=== PATIENT | female | born 1945 | race Caucasian/White ===

== ENCOUNTER → 2016-10-20 | Outpatient (CLI) | payer MEDICARE, OTHER ==
[~2016-10-20] VITALS: Ht 154.9 cm; Wt 90.5 kg
[~2016-10-20] MED LIST: ESTR0.5T5 PO; LEVO75TA PO; LOSA50TA6 PO; MEDR2.5T PO; METO50TA16 PO; Z PACK PO
--- NOTE | 2016-10-20 10:11 | HISTORY & PHYSICAL EXAMINATION ---
DATE OF ADMISSION: 11/19/2016 PROCEDURE: Left knee replacement. HISTORY OF PRESENT ILLNESS: The patient is a jane 70-year-old female who presents for preop evaluation prior to left knee replacement. She states she has pain in this knee for several years now which has worsened, it has now gotten to the point it is affecting her daily activities including walking, standing, going up and down steps. She has had previous injections in the past including cortisone without relief. She had her right knee replaced several years ago which is doing well. At this point in time, has failed conservative measures and would like to proceed with a left knee replacement. PAST MEDICAL HISTORY: 1. High cholesterol. 2. Hypothyroidism. 3. Hypertension. ALLERGIES: PENICILLIN CAUSES SWELLING. CURRENT MEDICATIONS: 1. Cozaar 50 mg daily. 2. Synthroid 75 mcg daily. 3. Lopressor 50 mg b.i.d. 4. Atrac-Tain apply 1 g b.i.d. topical use. PAST SURGICAL HISTORY: Right knee replacement. FAMILY HISTORY: Noncontributory. SOCIAL HISTORY: The patient is . Denies a history of smoking or tobacco use. No alcohol consumption. REVIEW OF SYSTEMS: Otherwise negative. Please see HPI for pertinent positives. PHYSICAL EXAMINATION: GENERAL: Jane 70-year-old female in no acute distress, alert and oriented x3. VITAL SIGNS: She is 5 feet 2 inches, weighs 141 pounds. HEENT: Normocephalic, atraumatic. CARDIAC: Regular rate and rhythm. No murmurs or gallops appreciated. Resting pulse 80 beats per minute. LUNGS: Clear to auscultation without rales or wheeze. ABDOMEN: Soft, nontender. Bowel sounds present. EXTREMITIES: Left lower extremity is neurovascularly intact. Calves are soft and nontender. DP pulse +2. Demonstrates good quad tone. Straight leg raise without lag. No erythema or warmth. Has mild effusion. Overall, has varus alignment, positive crepitation with motion, range of motion is 0/5/115. IMAGING: Reviewed of the left knee shows findings consistent with degenerative joint disease including joint space narrowing, subchondral sclerosis, and osteophyte formation noted. She has varus alignment. IMPRESSION: 1. Left knee degenerative joint disease. 2. Past medical history as outlined above. PLAN: Further care discussed with patient. At this point in time, has failed conservative and would like to proceed with left knee replacement. We will plan on discharge home with outpatient physical therapy. We will place on aspirin 81 mg p.o. b.i.d. for a month postop.
[2016-10-20 10:16] VITALS: Ht 154.9 cm; Wt 90.5 kg
--- NOTE | 2016-10-20 10:56 | PAT Medication Instructions ---
Service Date October 20, 2016. Current Home Medication List Estradiol (Estrace), 1 TAB PO QAM Levothyroxine Sodium (Synthroid), 75 MCG PO QAM Losartan Potassium (Cozaar), 50 MG PO QAM Medroxyprogesterone (Provera), 2.5 MG PO QAM Metoprolol Tartrate (Lopressor) (Lopressor), 50 MG PO BID [Z Pack], 1 TAB PO QAM Medication Instructions For Your Scheduled Surgery [Z Pack], 1 TAB PO QAM (to be completed to prior to surgery) - Check with surgeon for instructions: Estradiol (Estrace), 1 TAB PO QAM Medroxyprogesterone (Provera), 2.5 MG PO QAM - Hold the following medications the morning of surgery: Losartan Potassium (Cozaar), 50 MG PO QAM - Take the following medications the morning of surgery with a sip of water: Metoprolol Tartrate (Lopressor) (Lopressor), 50 MG PO BID Levothyroxine Sodium (Synthroid), 75 MCG PO QAM - Take the following medications as scheduled the night before surgery: Metoprolol Tartrate (Lopressor) (Lopressor), 50 MG PO BID If you have any questions please call us at [phone] (Sarah Montana PA-C ) or [phone] or [phone]
[2016-10-20 11:39] LABS: PROTHROMBIN TIME (PATIENT) 10.2 SECONDS (9.0-12.0)
[2016-10-20 12:10] LABS: BASO % 0.2 %; BASO ABS # 0.01 K/uL (0-0.2); COMPLETE YES; HEMATOCRIT 45.3 % (37-47); IG% 0.3 %; LYMPH % 24.4 %; LYMPH ABS # 1.46 K/uL (1.2-3.4); MEAN CELL VOLUME 81.9 fL (80-100); MEAN CORPUSCULAR HEMOGLOBIN 25.9 pg (25-34); MEAN CORPUSCULAR HGB CONC 31.6 g/dl (32-36); MONO % 7.2 %; NEUT % 65.9 %; PLATELET COUNT 82 K/uL (130-400); RED BLOOD COUNT 5.53 M/uL (4.2-5.4); WHITE BLOOD COUNT 5.98 K/uL (4.8-10.8)
[2016-10-20 13:50] LABS: BUN/CREATININE RATIO 16.8 (10-20); CALCIUM 9.9 mg/dl (8.5-10.1); CREATININE 0.87 mg/dl (0.60-1.20); POTASSIUM 4.5 mmol/L (3.5-5.1)
== END | disposition home or self-care (01) ==
LOC: C.LAB 08:00 → EDSTATUS 11-19 14:39
PROVIDERS: ATTEND Orthopaedic Surgery
DX: Z01.818 Encounter for other preprocedural examination (principal)

== ENCOUNTER 2021-09-18 06:35 | Inpatient (IN) ==
--- NOTE | 2021-08-16 12:01 | PAT Medication Instructions ---
Medication Instructions Date of Service August 16, 2021 Home Medications levothyroxine 75 mcg tablet (Synthroid) 75 mcg PO QAM losartan 50 mg tablet (Cozaar) 50 mg PO QAM metoprolol tartrate 50 mg tablet (Lopressor) 50 mg PO BID DO NOT take the morning of surgery losartan 50 mg tablet (Cozaar) 50 mg PO QAM Take morning of surgery With a small sip of water, OTHERWISE NOTHING TO EAT OR DRINK AFTER MIDNIGHT: levothyroxine 75 mcg tablet (Synthroid) 75 mcg PO QAM metoprolol tartrate 50 mg tablet (Lopressor) 50 mg PO BID Take evening before surgery metoprolol tartrate 50 mg tablet (Lopressor) 50 mg PO BID Other Notes If you have any questions please call us at [phone] or [phone] or [phone] or [phone]
--- NOTE | 2021-08-19 09:40 | Anesthesiology Consultation ---
Date of Service August 19, 2021 Assessment & Plan (1) Encounter for pre-operative examination: - thrombocytopenia, Plt 96k. No known prior history. Case discussed with Dr. Randall who advised PCP repeat CBC with diff at upcoming pre-op evaluation with their clinic and if still below 100, to obtain CBC with diff am DOS. Note completed to be faxed to PCP office. Mirela at surgeon's office made aware. - medical pre-op evaluation, 09/12/21. - latex allergy, contact. - Outpatient joint pathway: Patient marked as outpatient joint on booking sheet, states she is not aware of this plan. She was advised to further discuss with surgeon's office. Ramon at surgeon's office made aware. - COVID screening: Per assessment on 08/19/2021: Travel screen negative, no known COVID-19 positive contacts or current COVID-19 related symptoms in past 2 weeks. Patient vaccinated. Surgeon arranging preop COVID testing, scheduled 09/16/2021. Awaiting results. Chart Review Chart Review: Pending: Refer to Additional Notes / Consult section and Patient seen in Pre Admission Testing Teaching & Discussion Pre-Anesthesia Teaching/Discussion Notes: Instructed NPO after midnight before surgery, except medications with 15 cc of water. Medication instructions provided according to the PAT guidelines. History Surgery Operation Date: 09/18/21 07:00 Proposed Procedures p OP: Left Total Knee Arthroplasty - Rico Stewart DO Height/Weight Height: 5 ft 2 in Weight: 97.3 kg Allergies Allergy/AdvReac Type Severity Reaction Status Date / Time Penicillins Allergy Severe BREATHING Verified 08/12/21 10:32 ISSUES latex Allergy Mild RASH Verified 08/12/21 10:32 oxycodone [From OxyContin] AdvReac Mild NAUSEA/VOMI Verified 08/12/21 10:32 TTING Medications Home Medications Medication Instructions Recorded Confirmed Last Taken levothyroxine 75 mcg tablet 75 mcg PO QAM 08/12/21 08/12/21 Unknown (Synthroid) losartan 50 mg tablet (Cozaar) 50 mg PO QAM 08/12/21 08/12/21 Unknown metoprolol tartrate 50 mg tablet 50 mg PO BID 08/12/21 08/12/21 Unknown (Lopressor) Past Medical History Medical History (Updated 08/19/21 @ 10:08 by Kylie Casas PA-C) GERD (gastroesophageal reflux disease) controlled with diet modifications avoiding tomato based products or fatty foods Hiatal hernia Hypertension 140s/80s Hypothyroidism h/o Efren's Irregular heart beat for palpitations with MVP per pt, on metoprolol MVP (mitral valve prolapse) Osteoarthritis TMJ (temporomandibular joint syndrome) NO LOCKING Patient denies h/o stroke, seizures, heart attack, heart failure, DM, blood clots or blood transfusions. Exercise / Class Metabolic Activity II 4-5 Yardwork/Stairs/Walk up hill (denies CP or SOB with 1 FOS) Past Family History Family History Other No family history of adverse response to anesthesia Past Surgical History Surgical History H/O elbow surgery LEFT History of cardiac cath X 3 (NO STENTS) AT AGE 30 History of cholecystectomy History of esophagogastroduodenoscopy (EGD) History of mandibular surgery History of open reduction and internal fixation (ORIF) procedure RT [facility] History of tonsillectomy and adenoidectomy History of total knee replacement RT [place] teeth removed Past Anesthesia History No Hx of Anesthesia Complications and No Family Hx of Anesthesia Complications History of PONV No Hx of PONV and Hx of Motion Sickness Social History Smoking Status: Never smoker Do You Dip or Chew Tobacco: No Hx Alcohol Use: No substance use type: does not use Review of Systems Chronic, daily palpitations-reports d/t MVP after cardiac work-up years ago. No available cardiology records. Patient denies chest pain, shortness of breath, dyspnea on exertion, snoring, witnessed apneas, fever, chills, cough, or wheezing. Physical Exam Vital Signs Vitals BP 137/85 P 67 TEMP 98.6 SP02 95% on RA RESP 17 Physical Full cervical extension range of motion without pain Full TMJ range of motion TMD 3.5 finger breaths Mallampati Score 3 Dentition: intact, implants-upper and lower-front; denies chipped or loose teeth, caps/crowns or bridges Lungs: normal respiratory effort. Clear throughout to auscultation, no adventitious breath sounds Cardiac: regular rate and rhythm, no murmurs noted Carotid arteries: negative bruit bilat Lab Results Anesthesia Preop Results Results Anesthesia Widget: WBC 6.97 K/uL (4.8-10.8) 08/19/21 Hgb 15.0 g/dL (12.0-16.0) 08/19/21 Hct 45.8 % (37-47) 08/19/21 Plt 96 K/uL (130-400) L 08/19/21 Na 139 mmol/L (136-145) 08/19/21 K 4.7 mmol/L (3.5-5.1) 08/19/21 Cl 107 mmol/L (98-107) 08/19/21 CO2 27 mmol/L (21-32) 08/19/21 BUN 22 mg/dl (6-23) 08/19/21 Creat 0.89 mg/dl (0.6-1.2) 08/19/21 Glucose Level 92 mg/dl (70-99(Fasting)) 08/19/21 PT 10.2 Seconds (9.0-12.0) 08/19/21 PTT 24.8 Seconds (21.0-31.0) 08/19/21 INR 1.0 (0.9-1.1) 08/19/21 HA1c 5.9 % (4.5-5.6) H 08/19/21 Urine Color Yellow 08/19/21 Urine Appearance Cloudy (Clear) A 08/19/21 Urine pH 6.0 (4.5-7.5) 08/19/21 Urine Specific [place] 1.022 (1.000-1.030) 08/19/21 Urine Protein Negative (Negative) 08/19/21 Urine Glucose (UA) Negative (Negative) 08/19/21 Urine Ketones Negative (Negative) 08/19/21 Urine Blood Negative (Negative) 08/19/21 Urine Nitrite Negative (Negative) 08/19/21 Urine Bilirubin Negative (Negative) 08/19/21 Urine Urobilinogen Negative (Negative) 08/19/21 Urine Leukocyte Esterase 2+ (Negative) H 08/19/21 Urine WBC (Auto) 10-30 /hpf (0-5) H 08/19/21 Urine RBC (Auto) 5-10 /hpf (0-4) H 08/19/21 Urine Hyaline Casts (Auto) 1-5 /lpf (0-5) 08/19/21 Urine Epithelial Cells (Auto) >30 /lpf (0-5) H 08/19/21 Urine Bacteria (Auto) 1+ (Negative) H 08/19/21 Blood Type A Positive 08/19/21 Antibody Screen NEGATIVE 08/19/21 Lab Comments: Mirela at surgeon's office made aware of abnormal UA. Testing Electrocardiogram Date: 08/19/21 NSR, rate 62 bpm RBBB Chest X-Ray Date: 08/19/21 FINDINGS: No lines and tubes are seen. The cardiomediastinal silhouette is normal. The lungs are clear. No evidence of pleural effusion or pneumothorax. IMPRESSION: No acute chest disease.
--- NOTE | 2021-08-30 08:21 | History & Physical Report ---
Date of Service August 30, 2021 date of surgery: 09/18/21 Procedure: Left Total Knee Arthroplasty Surgeon: Rico Stewart Assessment & Plan (1) Arthritis of knee, left: Plan: Risks and benefits of procedure discussed in detail today, patient would like to proceed with a left total knee replacement at [facility] as scheduled. will obtain medical clearance from Dr Leal prior to surgery as well as obtain PATs at [facility]. Will place on ASA 81mg po bid x 1 month post op, f/u 2 weeks post op for routine post-operative care and x-ray, sooner if having any problems. will make arrangements for HHPT at the time of discharge. At this point in time, has failed conservative measures and would like to proceed with surgical intervention. The risks and benefits have been discussed including, but not limited to, risk of infection, nerve injury, stiffness, loss of motion, failure to improve, etc. Reasonable outcomes and options of treatment were discussed. An explanation of appropriate alternatives to the procedure that may be advantageous were d iscussed and their risks and benefits, as well as the risks and benefits of not proceeding with treatment. I offered to answer any additional inquiries concerning the treatment involved. All the patient's questions were answered. The patient is agreeable, understanding of the treatment plan and alternatives, and wishes to proceed with the treatment plan. History of Present Illness Chief Complaint: left knee pain Primary Care Provider: Sundeep Leal MD Aurea is a 75 year old female who complains of left knee pain, presents for pre-op evaluation prior to a left total knee replacement by Dr Stewart at [facility]. She complains of pain and stiffness in her left knee. Currently the patient states that the symptoms are moderate-severe and rated at 7/10. The pain is described as aching, sharp and throbbing. Her symptoms are aggravated by ascending stairs, daily activities, first steps while awake walking. Prior NSAIDs include IBU and Aleve. She has been treated with previous cortisone injections in the past without much relief. Allergies Allergy/AdvReac Type Severity Reaction Status Date / Time Penicillins Allergy Severe BREATHING Verified 08/12/21 10:32 ISSUES latex Allergy Mild RASH Verified 08/12/21 10:32 oxycodone [From OxyContin] AdvReac Mild NAUSEA/VOMI Verified 08/12/21 10:32 TTING Home Medications Medication Instructions Recorded Confirmed Type levothyroxine 75 mcg tablet 75 mcg PO QAM 08/12/21 08/12/21 History (Synthroid) losartan 50 mg tablet (Cozaar) 50 mg PO QAM 08/12/21 08/12/21 History metoprolol tartrate 50 mg tablet 50 mg PO BID 08/12/21 08/12/21 History (Lopressor) Past Med/Surg History Medical History GERD (gastroesophageal reflux disease) controlled with diet modifications avoiding tomato based products or fatty foods Hiatal hernia Hypertension 140s/80s Hypothyroidism h/o Efren's Irregular heart beat for palpitations with MVP per pt, on metoprolol MVP (mitral valve prolapse) Osteoarthritis TMJ (temporomandibular joint syndrome) NO LOCKING Surgical History H/O elbow surgery LEFT History of cardiac cath X 3 (NO STENTS) AT AGE 30 History of cholecystectomy History of esophagogastroduodenoscopy (EGD) History of mandibular surgery History of open reduction and internal fixation (ORIF) procedure RT [facility] History of tonsillectomy and adenoidectomy History of total knee replacement RT [place] teeth removed Family History Other No family history of adverse response to anesthesia Social History Smoking Status: Never smoker Second Hand Exposure: No; Hx Alcohol Use: No Preferred Language: Kyrgyz Paper Baler Required: No Beliefs That Will Affect Care: None Current Living Situation: Spouse Feels Safe at Home: Yes Assistive Devices: Contacts and Glasses Review of Systems Review of Systems: All systems reviewed & are unremarkable except as noted in HPI & below Constitutional: no fever, no chills and no sweats Respiratory: no cough and no dyspnea Cardiovascular: no chest pain, no dyspnea and no orthopnea Gastrointestinal: no abdominal pain, no nausea and no vomiting Musculoskeletal: as per Subjective / HPI Physical Exam Physical Exam: HT: 5ft 2in WT: 97.3kg BP: 155/86 Pulse: 74 Constitutional: WD/WN, vitals as above no acute distress Respiratory: normal respiratory effort, lungs clear to auscultation no respiratory distress, no labored breathing and does not use accessory muscles Cardiovascular: RRR, no murmur, no edema Gastrointestinal (Abdomen): normal bowel sounds, soft, nontender, no hepatosplenomegaly Musculoskeletal: Knee: + knee abnormal to inspection (LEFT KNEE), + effusion (+1 effusion), + limited ROM of knee (ROM 0/3/110), + knee ROM with crepitation, + joint line tenderness (medial joint line) and + Carlos's sign positive; no deformity, no skin erythema, no ecchymosis, no valgus laxity, no varus laxity, anterior drawer test negative, Casey's sign negative and pivot shift test negative Results & Data Results & Data ([facility]) Laboratory Results Left Knee X-ray: left knee series confirm advanced degenerative changes to the left knee, greatest medial compartments and patellofemoral joint, showing joint space narrowing, osteophyte formation and subchondral sclerosis. no acute bony pat hology noted.
[~2021-09-18 06:35] MED LIST changes: +ACETAMINOPHEN 500 MG TAB PO SCH; +CeleBREX 200 MG CAP PO SCH; -ESTR0.5T5 PO; +FAMOTIDINE 20 MG TAB PO SCH; +GABAPENTIN 300 MG CAP PO SCH; -LEVO75TA PO; -LOSA50TA6 PO; +LR 500ML BOLUS, THEN 15ML/HR IV SCH; -MEDR2.5T PO; -METO50TA16 PO; +METOCLOPRAMIDE HCL 10 MG TABLET PO SCH; +ROPIVACAINE 0.5% HCL/PF 150 MG, BUPIVACAINE 0.75% MPF 20 ML, EPINEPHrine 30MG/30ML (OR ... INFIL SCH; +TRANEXAMIC ACID 1,000 MG **IV Intra-op IV SCH; +TRANEXAMIC ACID 1,000 MG **IV Pre-op IV SCH; +VANCOMYCIN HCL 1,500 MG in SODIUM CHLORIDE 0.9% 500 ML IV SCH; -Z PACK PO; +dexAMETHasone 4 MG TAB PO SCH; +oxyCODONE HCL 10 MG TABCR (OxyCONTIN) PO SCH
[2021-09-18 07:35] LABS: Hematocrit (blood only) 42.9 % (37-47); Hemoglobin 14.5 g/dL (12.0-16.0); Mean Corpuscular Hemoglobin 28.3 pg (25-34); Mean Corpuscular Volume 83.6 fL (80-100); RDW Coefficient of Variation 14.6 % (11.5-14.5); RDW Standard Deviation 44.9 fL (36.4-46.3); Red Blood Count 5.13 M/uL (4.2-5.4); White Blood Count 6.99 K/uL (4.8-10.8)
[2021-09-18 08:26] LABS: Basophils # (auto) 0.01 K/uL (0-0.2); Basophils % (auto) 0.1 %; Eosinophils # (auto) 0.02 K/uL (0-0.5); Eosinophils % (auto) 0.3 %; Immature Granulocytes # (auto) 0.03 K/uL (0.00-0.02); Immature Granulocytes % (auto) 0.4 %; Lymphocytes # (auto) 1.78 K/uL (1.2-3.4); Lymphocytes % (auto) 25.5 %; Mean Corpuscular Hgb Conc 33.8 g/dL (32-36); Monocytes # (auto) 0.49 K/uL (0.11-0.59); Neutrophils # (auto) 4.66 K/uL (1.4-6.5); Neutrophils % (auto) 66.7 %; Platelet Count 97 K/uL (130-400); Platelet Estimate Decreased (Normal)
[2021-09-18] MEDS ORDERED: BUPIVACAINE 0.5 % 5 MG/1 ML PF 10ML VIAL ONE (08:34)
[2021-09-18] MEDS ORDERED: ROPIVACAINE 0.5% 5 MG/ML 30 ML VIAL ONE (08:35)
--- NOTE | 2021-09-18 08:53 | History & Physical Bridge Note ---
Date of Service September 18, 2021 History & Physical Bridge Note I have examined the patient, reviewed the History & Physical and in the interval since the performance of the History & Physical I have noted the following changes of clinical significance: no changes noted
[2021-09-18] MEDS ORDERED: MIDAZOLAM HCL 1 MG/ML 2ML VIAL ONE (08:56)
[2021-09-18] MEDS ORDERED: fentaNYL citrate 100 MCG/2 ML VIAL ONE (08:57)
[2021-09-18] MEDS ORDERED: ORTHO JOINT ANESTHETIC ONE (09:10)
[2021-09-18] MEDS ORDERED: ePHEDrine sulfate 50 MG/ML AMP IV PRN (09:24)
[2021-09-18] MEDS ORDERED: fentaNYL citrate 100 MCG/2 ML VIAL IV PRN (09:24)
[2021-09-18] MEDS ORDERED: ATROPINE SULFATE 0.1 MG/ML 10ML SYR IV PRN (09:24)
[2021-09-18] MEDS ORDERED: ONDANSETRON INJ 2 MG/ML 2 ML VIAL IV PRN ×2 (09:24→13:02)
[2021-09-18] MEDS ORDERED: PROPOFOL IV EMULSION 10 MG/ML 20 ML VIAL IV ONE ×2 (09:56→09:58)
--- NOTE | 2021-09-18 11:03 | Operative Report ---
Post Operative Report Pre & Post Diagnosis Operation Date: 09/18/21 09:15 Pre-Op Diagnosis: Left Knee Osteoarthritis Post-Op Diagnosis: Left Knee Osteoarthritis I identified the patient and participated in the time-out.: Yes Procedure Operation Date: 09/18/21 09:15 Actual Procedures p Left Total Knee Arthroplasty(Left) utilizing [facility] [employer] [facility] [place] 2 patient matched total knee arthroplasty size femur 5 tibia 3 12 mm polytwenty 9 oval patella- Rico Stewart DO Surgeon Rico Stewart DO Turning Sander Tender Gray [place] Estimated Blood Loss 5 Findings Consistent with Post-Op Diagnosis Patient presents with severe end-stage tricompartmental degenerative joint disease left knee nonresponsive to conservative management varus alignment subchondral sclerosis marginal osteophytes eburnated [id number] with moderate to large effusion Specimens Bone and cartilage Drains Medium bore Hemovac Anesthesia Type MAC Spinal Regional Complications none Disposition Accompanied Patient To Recovery: No Disposition: Recovery Room Indications Patient presents with severe end-stage DJD of the left knee after failed attempted conservative management clinic physical therapy anti-inflammatories relative rest activity modification corticosteroid injection viscosupplementation relative rest activity modification the above intraoperative findings were noted Description of Procedure After proper prepping and draping of the left lower extremity anterior midline incision was made over the region of the extensor extensor mechanism after meticulous hemostasis was obtained and maintained in subcutaneous tissues a medial parapatellar incision was made The patella was subluxed lateralward the medial lateral gutter were cleaned from any hypertrophic synovitis and scar tissue of the distal femoral block was placed and the distal femoral osteotomy cut was made subsequently the chamfers anterior and posterior osteotomy cuts were made utilizing the 4-in-1 block the tibia was subsequently subluxed anteriorward medial and ateral meniscal remnants were excised in their entirety remnants of the anterior and posterior cruciate ligaments were excised in their entirety excellent exposure of the proximal tibia was obtained the tibial osteotomy guide was placed on the proximal tibial osteotomy cut was made once again the knee was irrigated with copious amounts of sterile saline solution the patella was subsequently everted lateralward thickened scar tissue around the patella was removed the patella was subsequently cut utilizing a freehand technique and was drilled prepared for final preparation and placement of patella socially flexion-extension gaps were checked and the equal and symmetric trials were placed to the appropriate femoral and tibial trials with poly-spacer being placed for equal flexion and extension gaps and full range of motion including extension to 0 and flexion to 140 the trial components after having been taken to recovery range of motion was subsequently removed meticulous hemostasis was obtained and maintained subsequently a knee block injection of joint cocktail including ropivacaine 0.5% 150 mg. Bupivacaine 0.5% epinephrine 1-200,030 mL's toradol 30 mg dexamethasone 4 mg ketamine 10 mg clonidine 100 micrograms normal saline solution 30 mg was infiltrated into the soft tissues of the posterior knee medial lateral gutters and periosteal synovium special attention was paid to protect neurovascular structures at all times subsequently trial components having been removed the knee was irrigated with sterile saline solution. debris was removed the proximal tibia was subsequently prepared and was made ready for the placement of the tibial component tibial component was also cemented and tamped into position the femoral component was subsequently placed and cemented in the position the patellar component was subsequently cemented in position because hemostasis once again obtained and maintained wound having been thoroughly irrigated with debridement and debridement lavage was performed as well as a medial parapatellar incision closed with #1 Vicryl in interrupted fashion subcutaneous was closed with #2 Vicryl skin was closed with skin clips. PA-C was necessary for prepping and drapping as well as wound closure of deep fascia Sub cutaneous tissue and skin and was necessary for the case. A sterile compressive dressing was placed patient was taken to recovery in stable condition of report dictated by Terry I attest to the content of the Intraoperative Record and any orders documented therein. Any exceptions are noted below.Due to the complex nature of the procedure, the entire surgery was performed with the operational assistance of DEBRA Sanchez The facility assistant, under direct supervision, was involved in the actual performance of all aspects of the surgical procedure including hemostasis, tissue retraction and incision, instrument management, patient positioning, and wound closure. I attest to the content of the Intraoperative Record and any orders documented therein. Any exceptions are noted below.
--- NOTE | 2021-09-18 12:12 | XRay Report ---
LEFT KNEE 2 VIEWS History: Left total knee arthroplasty. Degenerative arthritis. Postop. FINDINGS: The patient is status post a left total knee arthroplasty. The hardware is intact. No fract ure or dislocation. Surgical drains are in place. IMPRESSION: Left total knee arthroplasty. No evidence for hardware complication. ACT 112: Negative or not required by law. Electronically signed by: Royce Freed M.D. 09/18/2021 12:11 PM
[2021-09-18] MEDS ORDERED: traMADol HCL 50 MG TABLET PO PRN (13:02)
[2021-09-18] MEDS ORDERED: diphenhydrAMINE Capsule 25 MG CAP PO PRN (13:02)
[2021-09-18] MEDS ORDERED: MAGNESIUM HYDROXIDE SUSP 30 ML UDC PO PRN (13:02)
[2021-09-18] MEDS ORDERED: HYDROmorphone INJ 1 MG/ML SYRINGE IV PRN (13:02)
[2021-09-18] MEDS ORDERED: METOCLOPRAMIDE HCL INJ 5 MG/ML 2 ML VIAL IV PRN (13:02)
[2021-09-18] MEDS ORDERED: NALOXONE HCL 0.4 MG/1 ML VIAL/CARP IV PRN (13:02)
[2021-09-18] MEDS ORDERED: bisacodyL 10 MG SUPP PR PRN (13:02)
--- NOTE | 2021-09-18 13:23 | Anesthesiology Progress Note ---
Date of Service September 18, 2021 Anesthesia Post Procedure Vital Signs Vital Signs: Temp Pulse Pulse Resp BP BP Pulse Ox 09/18/21 13:18 97.5 F L 14 122/79 93 09/18/21 12:45 97.5 F L 12 128/72 93 09/18/21 12:35 65 14 127/69 95 09/18/21 12:25 97.3 F L 65 14 132/68 95 09/18/21 12:15 63 13 115/66 93 09/18/21 12:05 66 13 118/72 93 09/18/21 11:55 68 12 123/66 94 09/18/21 11:45 70 12 113/63 94 09/18/21 11:37 97.5 F L 78 12 114/55 L 95 09/18/21 07:16 99.1 F 76 20 186/91 H 97 Pain Intensity Left Knee: Pain Intensity: 5 Transfer of Care Handoff Completed per policy Notes Mental Status: alert / awake / arousable and participated in evaluation Patient Amnestic to Procedure: Yes Nausea / Vomiting: adequately controlled Pain: adequately controlled Airway Patency, RR, SpO2: stable & adequate BP & HR: stable & adequate Hydration State: stable & adequate Neuraxial Anesthesia: was administered and sensory block is resolving Anesthetic Complications: no major complications apparent and Pt Satisfied with anesthetic care
[2021-09-18] MEDS: ACETAMINOPHEN 500 MG TAB PO SCH ×2 (13:29→21:51)
[2021-09-18] MEDS: KETOROLAC TROMETHAMINE 15 MG/ML VIAL IV SCH ×2 (13:29→18:16)
[2021-09-18] MEDS: SODIUM CHLORIDE 0.9% 1000ML 1,000 ML IV SCH ×2 (13:29→23:40)
[2021-09-18] MEDS: CLINDAMYCIN 600 MG in DEXTROSE 5% 50 ML IV SCH (17:32)
[2021-09-18] MEDS: DOCUSATE SODIUM 100 MG CAP PO SCH (20:44)
[2021-09-18] MEDS: CeleBREX 200 MG CAP PO SCH (20:45)
[2021-09-18] MEDS: METOPROLOL TARTRATE 50 MG TAB PO SCH (20:48)
[2021-09-18] MEDS ORDERED: SENNA 8.6 MG TAB PO SCH (21:00)
[2021-09-19] MEDS: KETOROLAC TROMETHAMINE 15 MG/ML VIAL IV SCH ×2 (01:32→06:32)
[2021-09-19] MEDS: CLINDAMYCIN 600 MG in DEXTROSE 5% 50 ML IV SCH (01:32)
[2021-09-19] MEDS: ACETAMINOPHEN 500 MG TAB PO SCH ×2 (06:26→13:29)
[2021-09-19 07:00] LABS: BUN Creatinine Ratio 23.7 (10-20); Calcium 8.9 mg/dl (8.5-10.1); Creatinine Clr Calc Pharmacy 54.8 ml/min; Est GFR (African American) 66.2 ml/min; Est GFR (Non-African American) 57.1 ml/min; Potassium 4.4 mmol/L (3.5-5.1)
[2021-09-19 07:01] LABS: Hematocrit (blood only) 36.6 % (37-47); Hemoglobin 11.8 g/dL (12.0-16.0); Mean Corpuscular Hemoglobin 27.4 pg (25-34); Mean Corpuscular Hgb Conc 32.2 g/dL (32-36); Mean Corpuscular Volume 85.1 fL (80-100); Platelet Count 91 K/uL (130-400); RDW Coefficient of Variation 14.6 % (11.5-14.5); RDW Standard Deviation 45.2 fL (36.4-46.3); White Blood Count 15.01 K/uL (4.8-10.8)
[2021-09-19] MEDS: DOCUSATE SODIUM 100 MG CAP PO SCH (07:56)
[2021-09-19] MEDS: CeleBREX 200 MG CAP PO SCH (07:56)
[2021-09-19] MEDS: METOPROLOL TARTRATE 50 MG TAB PO SCH (07:57)
[2021-09-19] MEDS ORDERED: MULTIVITAMIN TAB PO SCH (09:00)
[2021-09-19] MEDS ORDERED: LEVOTHYROXINE SODIUM 75 MCG TABLET PO SCH (09:00)
[2021-09-19] MEDS ORDERED: LOSARTAN POTASSIUM 50 MG TAB PO SCH (09:00)
--- NOTE | 2021-09-19 09:19 | Orthopedic Progress Note ---
Date of Service September 19, 2021 Assessment & Plan (1) Arthritis of knee, left: Plan: POD 1 s/p Left TKA PT/OT protocols. WBAT. DVT prophylaxis - ASA bid, SCD's , CELSO's Pain managment - as written. Pt would like to try the Tramadol to see if this will be adequate. Will recheck her later today to see how she is progressing. Leukocytosis - likely due to surgical stress/pre op steroids. Asymptomatic at this time. DC planning - Home with OPPT. Possible dc today. Admission and Anticipated Discharge Date Admission Date: September 18, 2021 Subjective POD 1 Pt sitting up in bed talking on her phone. Having some mild pain over the patellar area. No other complaints. Denies SOB,CP,LH. Physical Exam Physical Exam: Dressings C/D/I. Calves soft,NT. NV intact. Toes mobile. Good DF/PF. HV drainage 25ml. Results & Data ([facility]) Vital Signs (Past 12 Hours) Vital Signs Temp Pulse Pulse Resp BP Pulse Ox 09/19/21 07:40 37.0 C 72 17 120/68 96 09/19/21 02:50 37.1 C 63 16 116/68 96 09/18/21 22:18 37.1 C 70 16 117/66 93 Laboratory Results Laboratory Results WBC 15.01 K/uL (4.8-10.8) H 09/19/21 05:52 RBC 4.30 M/uL (4.2-5.4) 09/19/21 05:52 Hgb 11.8 g/dL (12.0-16.0) L 09/19/21 05:52 Hct 36.6 % (37-47) L 09/19/21 05:52 MCV 85.1 fL (80-100) 09/19/21 05:52 MCH 27.4 pg (25-34) 09/19/21 05:52 MCHC 32.2 g/dL (32-36) 09/19/21 05:52 RDW Std Deviation 45.2 fL (36.4-46.3) 09/19/21 05:52 RDW Coeff of Jaz 14.6 % (11.5-14.5) H 09/19/21 05:52 Plt Count 91 K/uL (130-400) L 09/19/21 05:52 Immature Gran % (Auto) 0.4 % 09/18/21 07:07 Neut % (Auto) 66.7 % 09/18/21 07:07 Lymph % (Auto) 25.5 % 09/18/21 07:07 Morehouse % (Auto) 7.0 % 09/18/21 07:07 Eos % (Auto) 0.3 % 09/18/21 07:07 Baso % (Auto) 0.1 % 09/18/21 07:07 Neut # (Auto) 4.66 K/uL (1.4-6.5) 09/18/21 07:07 Lymph # (Auto) 1.78 K/uL (1.2-3.4) 09/18/21 07:07 Morehouse # (Auto) 0.49 K/uL (0.11-0.59) 09/18/21 07:07 Eos # (Auto) 0.02 K/uL (0-0.5) 09/18/21 07:07 Baso # (Auto) 0.01 K/uL (0-0.2) 09/18/21 07:07 Immature Gran # (Auto) 0.03 K/uL (0.00-0.02) H 09/18/21 07:07 Platelet Estimate Decreased (Normal) L 09/18/21 07:07 Sodium 138 mmol/L (136-145) 09/19/21 05:52 Potassium 4.4 mmol/L (3.5-5.1) 09/19/21 05:52 Chloride 110 mmol/L (98-107) H 09/19/21 05:52 Carbon Dioxide 23 mmol/L (21-32) 09/19/21 05:52 Anion Gap 5 (3-11) 09/19/21 05:52 BUN 23 mg/dl (6-23) 09/19/21 05:52 Creatinine 0.97 mg/dl (0.6-1.2) 09/19/21 05:52 Est Cr Clr Drug Dosing 54.8 ml/min 09/19/21 05:52 Est GFR ( Amer) 66.2 ml/min 09/19/21 05:52 Est GFR (Non-Af Amer) 57.1 ml/min 09/19/21 05:52 BUN/Creatinine Ratio 23.7 (10-20) H 09/19/21 05:52 Glucose 116 mg/dl (70-99(Fasting)) H 09/19/21 05:52 Calcium 8.9 mg/dl (8.5-10.1) 09/19/21 05:52 SARS-CoV-2, RNA, NAAT NEGATIVE (NEGATIVE) 09/18/21 06:49 Impressions Knee X-Ray 09/18/21 11:45 LEFT KNEE 2 VIEWS History: Left total knee arthroplasty. Degenerative arthritis. Postop. FINDINGS: The patient is status post a left total knee arthroplasty. The hardware is intact. No fracture or dislocation. Surgical drains are in place. IMPRESSION: Left total knee arthroplasty. No evidence for hardware complication. ACT 112: Negative or not required by law. Electronically signed by: Royce Freed M.D. 09/18/2021 12:11 PM
[2021-09-19] MEDS ORDERED: HYDROCODONE/ACETAMOPHEN 5/325MG TAB PO PRN (12:31)
--- NOTE | 2021-09-20 07:04 | Discharge Summary ---
Date of Service date of discharge: September 19, 2021 date of admission: 09-18-21 Admission HPI Per Admitting Provider Aurea is a 75 year old female who complains of left knee pain, presents for pre- op evaluation prior to a left total knee replacement by Dr Stewart at [facility]. She complains of pain and stiffness in her left knee. Currently the patient states that the symptoms are moderate-severe and rated at 7/10. The pain is described as aching, sharp and throbbing. Her symptoms are aggravated by ascending stairs, daily activities, first steps while awake walking. Prior NSAIDs include IBU and Aleve. She has been treated with previous cortisone injections in the past without much relief. Principal Diagnosis left knee osteoarthritis Discharge Exam Musculoskeletal left knee: NVDI, calf SNT, negative kenyon sign. DP palpable, able to wiggle toes/ankle movement without difficulty. ROBIN dressing clean dry and intact. expected post-operative bruising noted. Discharge Data Allergies Allergy/AdvReac Type Severity Reaction Status Date / Time Penicillins Allergy Severe BREATHING Verified 09/18/21 07:08 ISSUES latex Allergy Mild RASH Verified 09/18/21 07:08 oxycodone [From OxyContin] AdvReac Mild NAUSEA/VOMI Verified 09/18/21 07:08 TTING Procedures Performed Operation Date: 09/18/21 09:15 Actual Procedures p Left Total Knee Arthroplasty(Left) - Rico Stewart, Ordered Studies 09/18/21 05:00 US - OR guided needle placemen Routine Hospital Course (1) Arthritis of knee, left: POD 1 s/p Left TKA PT/OT protocols. WBAT. DVT prophylaxis - ASA bid, SCD's , CELSO's Pain managment - as written. Pt would like to try the Tramadol to see if this will be adequate. Will recheck her later today to see how she is progressing. Leukocytosis - likely due to surgical stress/pre op steroids. Asymptomatic at this time. DC planning - Home with OPPT. discharge after PT Total Time Total Time Spent Total Time Spent (In Minutes): 20 Discharge Plan Discharge Items Patient Disposition: Home - Self-Care Reason For Visit: Left Knee Osteoarthritis Discharge Diagnosis: left total knee replacement Activity: Per Instructions section Lifting: Wait until after follow-up appointment Weightbearing: Left weightbearing Weightbearing Comment: WBAT with walker Non-emergency contact: Surgeon Call non-emergency contact if: you have any medication questions, your temperature is above 101, your wound has increased redness, your wound has increased drainage and your wound pain has increased Follow-up/Referrals: Rico Stewart DO [Surgeon] - (Follow up in 10-14 days from the day of surgery for your first post operative visit.) Sundeep Leal MD [Primary Care Provider] - Diet: Regular Addtl Attending Provider Instructions: ACTIVITY RECOMMENDATIONS: SELF CARE INSTRUCTIONS AFTER TOTAL KNEE REPLACEMENT A. You may need to continue a physical therapy program after discharge from the hospital. There are several options available to you. Your doctor will assist you in selecting the best one for you. 1. An out-patient facility 2 to 3 times a week for therapy or home therapy. 2. Continue working on all exercises taught to you in the hospital. Your goals should be to increase bending of your knee to 90 degrees and beyond and to fully straighten your knee. B. You may progress at your own pace from walking with a walker or crutches to a cane; then to no assistive devices. C. Make walking a part of your daily routine. Be up as much as comfortable with rest periods throughout the day. Rest with leg elevation is very important. Use the ice wrap frequently for the first 3-4 weeks. D. There are no restrictions on activities. You may ride in a car, shop, participate in imitation marble mechanic and all social activities. E. Wear the long elastic stockings (CELSO hose) 20 hours a day for 2 weeks after surgery. They can be removed several times a day for laundering and for a bath. F. You may shower, no tub baths until cleared by your doctor. SPECIAL CARE INSTRUCTIONS: VERY IMPORTANT TO READ AND REVIEW A. There are a few signs you need to watch for after you are home. Call [facility] if you notice any of the followin. Increased severe knee pain. Some pain is expected especially when you exercise. 2. Increased swelling in your leg or knee; pain or swelling of the calf muscle in either lower leg. 3. Any fluid drainage from the incision. 4. Shortness of breath or chest pain. B. Please call [facility] at if you have any concerns or questions about your operation or recovery. The doctor or his nurse will return your call promptly. C. You must take antibiotics before dental work, bladder, bowel or other surg lolly. Your doctor will provide you with a permanent care to carry describing this precaution. IMPORTANT: * REMEMBER TO TAKE ASPIRIN, 81 MG, TWICE DAILY FOR 4 WEEKS UNLESS OTHERWISE DIRECTED. THIS IS YOUR BLOOD THINNER. * HIGH RISK PATIENTS MAY BE PRESCRIBED A STRONGER BLOOD THINNER. THIS WILL BE PROVIDED AT DISCHARGE. * CALL IF INCREASED PAIN, REDNESS, DRAINAGE OR FEVER GREATER THAT 101. * WEAR CELSO HOSE 20 HOURS PER DAY FOR 2 WEEKS. * ROBIN Dressing- This is a large suction dressing covering your incision. This will help pull any excess drainage from the wound and allow your incision to heal properly. You may shower with this if you can keep the unit outside of the shower. If any bleeding or leakage is noted please call your doctor's office. This will remain on your incision for 7 days and then should be removed. This can be done yourself or by the home nursing staff if applicable. The entire unit is disposable once removed. Once removed, keep incision clean and dry. If redness or drainage is noted, please call your surgeon. ONCE ROBIN IS REMOVED, FOLLOW THESE INSTRUCTIONS: DERMABOND Prineo- This is a mesh tape dressing that is covered with glue. It should remain in place until the incision is properly healed, usually 10-14 days. This dressing is designed to naturally slough off. You may trim the excess mesh tape as it peels off. Incision may be briefly wet in a shower. Dry immediately by blotting with a clean, dry towel. Do not bath or swim until instructed by your doctor. Do not scratch, rub, or pick at the dressing. Do not apply any topical ointments or lotions until dressing is completely removed and/or instructed by your doctor. There may be a small piece of suture material at one end of your incision. Do not pull or trim this. If it is bothersome or catching on clothing, you may cover it with a band-aid. IF INCISION IS LEAKING THROUGH DRESSING, CALL THE OFFICE . FOLLOW UP VISIT: If appointment is not already scheduled: Please call [facility] to make a follow-up appointment for 2 weeks after your surgery at . Stand-Alone Forms: [email or web address], Smoking Cessation Medications and DC Order Prescriptions: New doxycycline hyclate 100 mg capsule 100 mg PO BID 14 Days Qty: 28 RF: 1 hydrocodone-acetaminophen 5-325 mg tablet 1 - 2 tab PO Q6H MDD 8 tabs PRN (Reason: pain) Qty: 24 RF: 0 polyethylene glycol 3350 [Miralax] 17 gram powder in packet 17 g PO DAILY PRN (Reason: constipation) Qty: 5 RF: 0 aspirin [Ecotrin Low Strength] 81 mg tablet,delayed release (DR/EC) 81 mg PO BID 30 Days Qty: 60 RF: 0 Continued losartan [Cozaar] 50 mg Tablet 50 mg PO QAM RF: 0 levothyroxine [Synthroid] 75 mcg Tablet 75 mcg PO QAM RF: 0 metoprolol tartrate [Lopressor] 50 mg Tablet 50 mg PO BID RF: 0 Discharge Orders: Discharge Order (Routine); Ordered 09/19/21 Ordered By: Rosalino Butler Admission Data Admit Date/Time: 09/18/21 09:31 Attending Provider: Rico Stewart Admit Provider: Rico Stewart Primary Care Provider: Sundeep Leal Other Interventions: Discharge Summary Assessment (RN) Last Done: 09/19/21 13:48
== END 2021-09-19 15:35 | disposition home or self-care (01) | DRG 470 ==
LOC: ASU 06:35 → 3E 09:31